=== PATIENT | male | born 1955 | race Caucasian/White ===

== ENCOUNTER 2018-08-28 14:25 | Day surgery (SDC) | payer MEDICAID ==
[~2018-08-28] VITALS: Ht 167.6 cm; Wt 88.6 kg
[~2018-08-28 14:25] MED LIST: PROPOFOL 1% 20 ML VIAL IVP ONE
[2018-08-28] MEDS ORDERED: SODIUM CHLORIDE 0.9% 1,000 ML IV ONE ×2 (14:35→14:45)
== END 2018-08-28 18:55 | disposition home or self-care (01) ==
LOC: SURGERY 14:25
PROVIDERS: ATTEND Internal Medicine Gastroenterology
DX: K29.50 Unspecified chronic gastritis without bleeding (principal); K21.0 Gastro-esophageal reflux disease with esophagitis; K44.9 Diaphragmatic hernia without obstruction or gangrene; D64.9 Anemia, unspecified; K31.89 Other diseases of stomach and duodenum; G47.33 Obstructive sleep apnea (adult) (pediatric); I10 Essential (primary) hypertension; D50.9 Iron deficiency anemia, unspecified; Z82.49 Family history of ischemic heart disease and other diseases of the circulatory system
CPT/HCPCS: 43239; C1769; J2704; J7030; 88305; 88312; 88313